=== PATIENT | male | born 1980 | race Caucasian/White ===

== ENCOUNTER 2020-05-16 20:17 | Inpatient (IN) | payer BC ==
--- NOTE | 2020-05-16 20:38 | ED ---
Psych HPI - General Chief Complaint: Psychiatric Symptoms Stated Complaint: Mental Health Time Seen by Provider: 05/16/20 20:30 Source: patient Mode of arrival: ambulatory - History of Present Illness Initial Comments: 39-year-old male patient presents to the emergency department today for evaluation of suicidal ideation. Patient had a very stressful last couple of weeks and came to a head today. Patient reported his gun and when his white count home told her that he was going to kill himself. States he did not feel safe staying home. Asked to be taken to the hospital. Patient does have a history of some depression and anxiety for which she takes Effexor. Has some remote history of suicidal thoughts but never any attempts. Denies any alcohol or drug use. Denies any current physical injuries or concerns. Patient denies any recent rash, fever, chills, cough, shortness of breath, chest pain, abdominal pain, nausea, vomiting, diarrhea, constipation, back pain, numbness, tingling, dizziness, weakness, hematuria, dysuria, urinary urgency, urinary frequency, headache, visual changes, or any other complaints. - Related Data Home Medications Medication Instructions Recorded Confirmed Venlafaxine HCl [Effexor] 50 mg PO DAILY 02/07/16 05/16/20 Allergies Allergy/AdvReac Type Severity Reaction Status Date / Time No Known Allergies Allergy Verified 05/16/20 22:50 Review of Systems ROS Statement: Those systems with pertinent positive or pertinent negative responses have been documented in the HPI. ROS Other: All systems not noted in ROS Statement are negative. Past Medical History Past Medical History: No Reported History History of Any Multi-Drug Resistant Organisms: None Reported Additional Past Surgical History / Comment(s): vasectomy Past Psychological History: Depression Smoking Status: Never smoker Past Alcohol Use History: None Reported Past Drug Use History: None Reported General Exam Limitations: no limitations General appearance: alert, in no apparent distress, other ENT exam: Present: normal exam, normal oropharynx, mucous membranes moist Respiratory exam: Present: normal lung sounds bilaterally. Absent: respiratory distress, wheezes, rales, rhonchi, stridor Cardiovascular Exam: Present: regular rate, normal rhythm, normal heart sounds. Absent: systolic murmur, diastolic murmur, rubs, gallop, clicks Neurological exam: Present: alert, oriented X3, CN II-XII intact Psychiatric exam: Present: normal affect, normal mood Skin exam: Present: warm, dry, intact, normal color. Absent: rash Course Vital Signs 05/16/20 05/17/20 20:18 00:46 Temperature 98.5 F 98.1 F Pulse Rate 71 87 Respiratory 18 18 Rate Blood Pressure 161/106 137/97 O2 Sat by Pulse 99 98 Oximetry Medical Decision Making - Medical Decision Making 39-year-old male patient presents to the emergency department today for evaluation of suicidal ideation. Patient with plan to shoot himself, had a shotgun loaded at home. His at a stressful couple of weeks. He was cleared medically. He was seen and evaluated by emergency psychiatric services. He will be admitted to the inpatient mental health unit. Case discussed with my attending Dr. James. - Lab Data Lab Results 05/16/20 05/16/20 Range/Units 20:47 21:21 Urine Opiates Screen Not Detected (NotDetected) Ur Oxycodone Screen Not Detected (NotDetected) Urine Methadone Screen Not Detected (NotDetected) Ur Propoxyphene Screen Not Detected (NotDetected) Ur Barbiturates Screen Not Detected (NotDetected) U Tricyclic Antidepress Not Detected (NotDetected) Ur Phencyclidine Scrn Not Detected (NotDetected) Ur Amphetamines Screen Not Detected (NotDetected) U Methamphetamines Scrn Not Detected (NotDetected) U Benzodiazepines Scrn Not Detected (NotDetected) Urine Cocaine Screen Not Detected (NotDetected) U Marijuana (THC) Screen Not Detected (NotDetected) Coronavirus (PCR) Not Detected (Not Detectd) Disposition Clinical Impression: Depression, Suicidal ideation Disposition: TRANSFER TO PSYCH HOSP/UNIT Condition: Serious Referrals: Georges Casper DO [Primary Care Provider] - 1-2 days - Out of Hospital Transfer - Req. Specs Out of Hospital Transfer - Requested Specifics: Psychiatric Non-ICU ([facility])
[2020-05-16] MEDS ORDERED: NICOTINE 7MG/24HR PATCH TRANSDERM ONE (21:15)
[2020-05-16 21:45] LABS: Amphetamine Screen,Urine Not Detected (NotDetected); Barbiturate Screen,Urine Not Detected (NotDetected); Benzodiazepines Screen,Urine Not Detected (NotDetected); Cocaine Screen,Urine Not Detected (NotDetected); Methadone Screen, Urine Not Detected (NotDetected); Opiate Screen,Urine Not Detected (NotDetected); Oxycodone Screen, Urine Not Detected (NotDetected); Phencyclidine Screen,Urine Not Detected (NotDetected); Tricyclic Antidepressant,Urine Not Detected (NotDetected); Urn Cannabinoid Scrn Not Detected (NotDetected)
[2020-05-17 00:41] LABS: Appearance,Urine Clear (Clear); Bilirubin,Urine Negative (Negative); Blood,Urine Trace (Negative); Color,Urine Yellow; Glucose,Urine (UA) Negative (Negative); Ketones,Urine 2+ (Negative); Leukocyte Esterase,Urine Negative (Negative); Mucus,Urine Occasional /hpf; Nitrite,Urine Negative (Negative); PH, Urine 6.5 (5.0-8.0); Protein,Urine Trace (Negative); RBC,Urine 11 /hpf (0-5); Specific Gravity,Urine 1.029 (1.001-1.035); Squamous Epithelial Cell,Urine <1 /hpf (0-4); Urobilinogen,Urine <2.0 mg/dL (<2.0); WBC,Urine 1 /hpf (0-5)
[2020-05-17 00:57] LABS: HCT 45.6 % (39.0-53.0); HGB 15.6 gm/dL (13.0-17.5); MCH 31.7 pg (25.0-35.0); MCHC 34.3 g/dL (31.0-37.0); MCV 92.4 fL (80.0-100.0); Platelet Count 250 k/uL (150-450); RBC 4.94 m/uL (4.30-5.90); RDW 11.3 % (11.5-15.5); WBC 8.8 k/uL (3.8-10.6)
[2020-05-17 01:08] LABS: ALT 14 U/L (4-49); AST 19 U/L (17-59); African American GFR (CKD) >90 (>60 ml/min/1.73 sqM); Albumin 4.8 g/dL (3.5-5.0); Alkaline Phosphatase 53 U/L (38-126); Anion Gap 14 mmol/L; Blood Urea Nitrogen 14 mg/dL (9-20); Calcium 10.1 mg/dL (8.4-10.2); Carbon Dioxide 23 mmol/L (22-30); Chloride 100 mmol/L (98-107); Glucose 102 mg/dL (74-99); Non-African American GFR(CKD) >90 (>60 ml/min/1.73 sqM); Potassium 3.8 mmol/L (3.5-5.1); Sodium 137 mmol/L (137-145); Total Bilirubin 0.8 mg/dL (0.2-1.3); Total Protein 7.8 g/dL (6.3-8.2)
[2020-05-17] MEDS ORDERED: LORazepam 1 MG TAB PO PRN (01:30)
[2020-05-17] MEDS ORDERED: ACETAMINOPHEN TAB 325 MG TAB PO PRN (01:30)
[2020-05-17] MEDS ORDERED: MAGNESIUM HYDROXIDE 2,400 MG/10 ML CUP PO PRN (01:30)
[2020-05-17] MEDS ORDERED: MAG HYDROX/AL HYDROX/SIMETH 30 ML CUP PO PRN (01:30)
[2020-05-17] MEDS ORDERED: LORazepam 2 MG/ML INJ IM PRN (01:37)
[2020-05-17] MEDS ORDERED: haloperidoL 5 MG TAB PO PRN (01:38)
[2020-05-17] MEDS ORDERED: HALOPERIDOL LACTATE 5 MG/ML 1 ML VIAL IM PRN (01:38)
[2020-05-17] MEDS: NICOTINE 7MG/24HR PATCH TRANSDERM SCH (08:15)
[2020-05-17] MEDS ORDERED: VENLAFAXINE HCL 50 MG TAB PO SCH (09:00)
--- NOTE | 2020-05-17 10:21 | P.HP ---
Psychiatric H&P - . H&P Date: 05/17/20 History & Physical: Allergies Allergy/AdvReac Type Severity Reaction Status Date / Time No Known Allergies Allergy Verified 05/17/20 03:19 Vital Signs Temp 98.4 F 05/17/20 03:10 Pulse 63 05/17/20 03:10 Resp 18 05/17/20 03:10 BP 134/77 05/17/20 03:10 Pulse Ox 99 05/17/20 03:10 Intake & Output 05/16/20 05/17/20 05/17/20 18:59 06:59 18:59 Weight 73.4 kg Laboratory Last Values WBC 8.8 k/uL (3.8-10.6) 05/17/20 00:39 RBC 4.94 m/uL (4.30-5.90) 05/17/20 00:39 Hgb 15.6 gm/dL (13.0-17.5) 05/17/20 00:39 Hct 45.6 % (39.0-53.0) 05/17/20 00:39 MCV 92.4 fL (80.0-100.0) 05/17/20 00:39 MCH 31.7 pg (25.0-35.0) 05/17/20 00:39 MCHC 34.3 g/dL (31.0-37.0) 05/17/20 00:39 RDW 11.3 % (11.5-15.5) L 05/17/20 00:39 Plt Count 250 k/uL (150-450) 05/17/20 00:39 MPV 8.0 05/17/20 00:39 Sodium 137 mmol/L (137-145) 05/17/20 00:39 Potassium 3.8 mmol/L (3.5-5.1) 05/17/20 00:39 Chloride 100 mmol/L (98-107) 05/17/20 00:39 Carbon Dioxide 23 mmol/L (22-30) 05/17/20 00:39 Anion Gap 14 mmol/L 05/17/20 00:39 BUN 14 mg/dL (9-20) 05/17/20 00:39 Creatinine 0.64 mg/dL (0.66-1.25) L 05/17/20 00:39 Est GFR (CKD-EPI)AfAm >90 (>60 ml/min/1.73 sqM) 05/17/20 00:39 Est GFR (CKD-EPI)NonAf >90 (>60 ml/min/1.73 sqM) 05/17/20 00:39 Glucose 102 mg/dL (74-99) H 05/17/20 00:39 Calcium 10.1 mg/dL (8.4-10.2) 05/17/20 00:39 Total Bilirubin 0.8 mg/dL (0.2-1.3) 05/17/20 00:39 AST 19 U/L (17-59) 05/17/20 00:39 ALT 14 U/L (4-49) 05/17/20 00:39 Alkaline Phosphatase 53 U/L (38-126) 05/17/20 00:39 Total Protein 7.8 g/dL (6.3-8.2) 05/17/20 00:39 Albumin 4.8 g/dL (3.5-5.0) 05/17/20 00:39 TSH 2.730 mIU/L (0.465-4.680) 05/17/20 00:39 Urine Color Yellow 05/16/20 21:30 Urine Appearance Clear (Clear) 05/16/20 21:30 Urine pH 6.5 (5.0-8.0) 05/16/20 21:30 Ur Specific [place] 1.029 (1.001-1.035) 05/16/20 21:30 Urine Protein Trace (Negative) H 05/16/20 21:30 Urine Glucose (UA) Negative (Negative) 05/16/20 21:30 Urine Ketones 2+ (Negative) H 05/16/20 21:30 Urine Blood Trace (Negative) H 05/16/20 21:30 Urine Nitrite Negative (Negative) 05/16/20 21:30 Urine Bilirubin Negative (Negative) 05/16/20 21:30 Urine Urobilinogen <2.0 mg/dL (<2.0) 05/16/20 21:30 Ur Leukocyte Esterase Negative (Negative) 05/16/20 21:30 Urine RBC 11 /hpf (0-5) H 05/16/20 21:30 Urine WBC 1 /hpf (0-5) 05/16/20 21:30 Ur Squamous Epith Cells <1 /hpf (0-4) 05/16/20 21:30 Urine Mucus Occasional /hpf (None) H 05/16/20 21:30 Urine Opiates Screen Not Detected (NotDetected) 05/16/20 21:21 Ur Oxycodone Screen Not Detected (NotDetected) 05/16/20 21:21 Urine Methadone Screen Not Detected (NotDetected) 05/16/20 21:21 Ur Propoxyphene Screen Not Detected (NotDetected) 05/16/20 21:21 Ur Barbiturates Screen Not Detected (NotDetected) 05/16/20 21:21 U Tricyclic Antidepress Not Detected (NotDetected) 05/16/20 21:21 Ur Phencyclidine Scrn Not Detected (NotDetected) 05/16/20 21:21 Ur Amphetamines Screen Not Detected (NotDetected) 05/16/20 21:21 U Methamphetamines Scrn Not Detected (NotDetected) 05/16/20 21:21 U Benzodiazepines Scrn Not Detected (NotDetected) 05/16/20 21:21 Urine Cocaine Screen Not Detected (NotDetected) 05/16/20 21:21 U Marijuana (THC) Screen Not Detected (NotDetected) 05/16/20 21:21 Coronavirus (PCR) Not Detected (Not Detectd) 05/16/20 20:47 05/17/20 10:15 IDENTIFYING DATA: Patient is a 39-year-old male who currently lives with 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 HPI: Patient presented to the hospital yesterday with complaints of suicidal thoughts and being stressed for the past 2 weeks. According to ER report patient claimed that he was not safe at home and had a plan to shoot himself with his gun. Patient's UDS was negative. Patient was admitted voluntarily to the psychiatric unit for treatment and evaluation. Patient was seen today and agreeable to speak to service writer advisor and appeared to be cooperative for the most part. He had a depressed affect and irritable at times. He states that he's been taking Effexor for the past "20 years" and states that it has not been helping him any longer. He states that he has been feeling more "stressed" recently and states that he is feeling more anxious as well. He states that he "cares too much what other people think". He states that he is been feeling depressed for the past 3-4 weeks. 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 He states that things at work have been busier and is feeling more stressed about this. She states that "I just wanted it all to be done". He claims that currently sleeping approximately 1-2 hours a night and has a motivation when he gets home from work . He states that he has a decrease in his appetite. He states that he has 3 guns at home and claims that his got rid of them and gave them to his father after this incident.. Patient denies any suicidal or homicidal ideations intent or plan. At this time patient denies any auditory or visual hallucinations. Patient denies any flight of ideas racing thoughts and increased in goal directed behavior. Patient admits to using no recreational drugs PAST PSYCHIATRIC HISTORY: Patient states that he has a history of depression and anxiety. Patient claims that he has been on Effexor 50 mg daily for the past "20 years". Patient denies any previous psychiatric hospitalizations. Patient denies any psychiatric outpatient follow-up. Patient denies any history of suicide attempts in the past. PMH:denies ALLERGIES: as per EMR CHEMICAL DEPENDENCY HISTORY: as per HPI FAMILY PSYCHIATRIC/SUBSTANCE USE HISTORY: He states that his sister had depression SOCIAL HISTORY: Patient was born and raised in [place], [place] and states that he completed high school and did some college. He denies any legal history or history. 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 MENTAL STATUS EXAM: General Appearance: Patient appears to be stated age is alert, directable, and attempts to cooperate. Irritable at times. Patient appears to have fair hygiene and grooming. Behavior: Patient is seated without any agitated behavior. Attempts to cooperate. Speech: Patient's speech is fluent and nonpressured. Mood/Affect: Patient reports their mood is depressed and anxious, affect is congruent Suicidality/Homicidality: Patient denies having any homicidal ideation intent or plan. Denies any suicidal ideations intent or plan Perceptions: Patient denies any visual hallucinations and denies any auditory hallucinations Though content/process: There is no evidence of any delusional thought content and thought process is linear and goal-directed. Focused on his stressors. Memory and concentration: AOX3, grossly intact for the purposes of this session. Can spell "WORLD" backwards Judgment and insight: poor STRENGTHS/WEAKNESSES: strength is that patient is resilient. Weakness is that patient has multiple social stressors. INTELLECT: average IMPRESSIONS: Major depressive disorder, recurrent, severe without psychotic features Anxiety disorder unspecified nicotine dependence PLAN: -Patient is admitted under voluntary status to MHU for stabilization of psychiatric symptoms and safety. Patient has signed adult voluntary form and m edication consent and is placed in patient's chart. -Medications : Will start patient on Zoloft 50 mg daily for mood/anxiety. Discontinued Effexor as per patient request. Started Remeron 15 mg daily at bedtime for sleep/appetite/mood. -Ativan and Haldol PRN for agitation/aggression -Patient was informed of the risks, benefits and side effects of the medication and patient verbally consented to taking the medications. Patient signed med consent form and was placed in chart. -Internal Medicine consult to perform medical evaluation and physical. -NRT - not needed as patient does not smoke -SW on board for discharge planning. Encourage patient to participate in groups to work on coping skills. We will need to confirm with patient's that the guns and weapons have been removed from the house prior to discharge. 05/17/20 10:21
[2020-05-17 11:27] VITALS: BMI 22.6
--- NOTE | 2020-05-17 13:56 | P.CONS ---
History of Present Illness - Reason for Consult Medical clearance - History of Present Illness 39-year-old pleasant gentleman was admitted seconded referral for depression and possible suicidal ideations. Patient denied any fever chills nausea vomiting chest pain dysuria. Review of Systems REVIEW OF SYSTEMS: CONSTITUTIONAL: No fever, no malaise, no fatigue. HEENT: No recent visual problems or hearing problems. Denied any sore throat. CARDIOVASCULAR: No chest pain, orthopnea, PND, no palpitations, no syncope. PULMONARY: No shortness of breath, no cough, no hemoptysis. GASTROINTESTINAL: No diarrhea, no nausea, no vomiting, no abdominal pain. NEUROLOGICAL: No headaches, no weakness, no numbness. HEMATOLOGICAL: Denies any bleeding or petechiae. GENITOURINARY: Denies any burning micturition, frequency, or urgency. MUSCULOSKELETAL/RHEUMATOLOGICAL: Denies any joint pain, swelling, or any muscle pain. ENDOCRINE: Denies any polyuria or polydipsia. The rest of the 14-point review of systems is negative. Past Medical History Past Medical History: No Reported History History of Any Multi-Drug Resistant Organisms: None Reported Additional Past Surgical History / Comment(s): vasectomy Smoking Status: Never smoker Medications and Allergies Home Medications Medication Instructions Recorded Confirmed Type Venlafaxine HCl [Effexor] 50 mg PO DAILY 02/07/16 05/16/20 History Allergies Allergy/AdvReac Type Severity Reaction Status Date / Time No Known Allergies Allergy Verified 05/17/20 03:19 Physical Exam Vitals: Vital Signs Temp Pulse Pulse Resp BP BP Pulse Ox 05/17/20 13:38 97.2 F L 05/17/20 03:10 98.4 F 63 18 134/77 99 05/17/20 00:46 98.1 F 87 18 137/97 98 05/16/20 20:18 98.5 F 71 18 161/106 99 Intake and Output 05/16/20 05/17/20 05/17/20 22:59 06:59 14:59 Other: Weight 72.575 kg 73.4 kg 73.4 kg PHYSICAL EXAMINATION: GENERAL: The patient is alert and oriented x3, not in any acute distress. Well developed, well nourished. HEENT: Pupils are round and equally reacting to light. EOMI. No scleral icterus. No conjunctival pallor. Normocephalic, atraumatic. No pharyngeal erythema. No thyromegaly. CARDIOVASCULAR: S1 and S2 present. No murmurs, rubs, or gallops. PULMONARY: Chest is clear to auscultation, no wheezing or crackles. ABDOMEN: Soft, nontender, nondistended, normoactive bowel sounds. No palpable organomegaly. MUSCULOSKELETAL: No joint swelling or deformity. EXTREMITIES: No cyanosis, clubbing, or pedal edema. NEUROLOGICAL: Gross neurological examination did not reveal any focal deficits. SKIN: No rashes. Results CBC & Chem 7: 05/17/20 00:39 05/17/20 00:39 Labs: Abnormal Lab Results - Last 24 Hours (Table) 05/16/20 05/17/20 05/17/20 Range/Units 21:30 00:39 00:39 RDW 11.3 L (11.5-15.5) % Creatinine 0.64 L (0.66-1.25) mg/dL Glucose 102 H (74-99) mg/dL Urine Protein Trace H (Negative) Urine Ketones 2+ H (Negative) Urine Blood Trace H (Negative) Urine RBC 11 H (0-5) /hpf Urine Mucus Occasional H (None) /hpf Assessment and Plan Plan: -Major depression: Management as per primary service -Anxiety disorder - nicotine dependence counseling was provided patient uses chewing tobacco. Patient is medically stable doesn't have any chronic medical problems no further recommendations from medicine
[2020-05-17] MEDS: MIRTAZAPINE 15 MG TAB PO SCH (21:23)
[2020-05-18] MEDS: SERTRALINE 50 MG TAB PO SCH (08:30)
[2020-05-18] MEDS: NICOTINE 7MG/24HR PATCH TRANSDERM SCH (08:30)
--- NOTE | 2020-05-18 09:32 | P.PN ---
Progress Note - Text Progress Note Date: 05/18/20 Interval History: Patient was seen lying in his bed this morning and was directable and agreeable to speak with verse writer in the office. Patient appears to be mildly more cooperative the verse writer today. He continues to have a soft tone of voice and was fairly constricted in his affect. He states that his mood has been gradually improving however has not noticed much change since this morning taking his first dose of Zoloft. He states that his anxiety is continuing throughout the day and took an Ativan yesterday. He states that he was able to sleep better last night however does not know how long. He states that his appetite has been improving with the Remeron. Gasoline Pump Mechanic discussed a plan to monitor her over the weekend and increase the dose of Zoloft if needed and patient was agreeable to this. He stated that he has gone to some groups and talk with his yesterday over the phone.. At this time patient denies any suicidal or homical ideations, intent or plan. Patient denies any auditory, visual hallucinations and denies any paranoia or delusions. Patient denies any side effects from the medications and has been compliant with meds. Mental Status Exam: General Appearance: Patient appears to be stated age is alert, directable, and attempts to cooperate. Improvement in irritability. Patient appears to have fair hygiene and grooming. Behavior: Patient is seated without any agitated behavior. Attempts to cooperate. Speech: Patient's speech is fluent and nonpressured. Soft tone of voice Mood/Affect: Patient reports their mood is depressed and anxious, improving mildly, affect is congruent and constricted Suicidality/Homicidality: Patient denies having any homicidal ideation intent or plan. Denies any suicidal ideations intent or plan Perceptions: Patient denies any visual hallucinations and denies any auditory hallucinations Though content/process: There is no evidence of any delusional thought content and thought process is linear and goal-directed. Focused on his stressors. Memory and concentration: AOX3, grossly intact for the purposes of this session Judgment and insight: poor, improving mildly Assessment Major depressive disorder, recurrent, severe without psychotic features Anxiety disorder unspecified nicotine dependence Plan: -Patient continues to meet criteria for inpatient psychiatric admission for symptom stabilization and safety. Patient has signed [adult voluntary form and] medication consent and was placed in patient's chart. -Medications: Continue Zoloft 50 mg daily for mood/anxiety, consider increasing dose to 100mg on thursday. Continue with Remeron 15 mg daily at bedtime for sleep/appetite/mood. -When necessary Ativan and Haldol for agitation/aggression. -NRT -not needed as patient does not smoke -SW on board for discharge planning. Encouraged the patient to participate in milieu. We will need to confirm with patient's that the guns and weapons have been removed from the house prior to discharge. If patient does well over the weekend and likely discharge thursday-thursday
[2020-05-18] MEDS: MIRTAZAPINE 15 MG TAB PO SCH (22:11)
[2020-05-19] MEDS: NICOTINE 7MG/24HR PATCH TRANSDERM SCH (08:19)
[2020-05-19] MEDS: SERTRALINE 50 MG TAB PO SCH (08:19)
--- NOTE | 2020-05-19 10:23 | P.PN ---
Progress Note - Text Progress Note Date: 05/19/20 Interval history: Patient was seen lying in bed reading a book and was directable and agreeable to speak with clinical writer. Patient reports that he is feeling better. She is not reporting any suicidal or homicidal ideation, intention, and/or plan. He is denying any auditory or visual hallucinations. He denies any paranoia or delusions. He states that he is enjoying himself by engaging in reading. He has been adherent with his medications and is not reporting any significant side effects at this time. He reports his anxiety appears to be improving mildly. He reports he is not as focused on his stressors today. Mental status exam: General Appearance: Patient appears to be stated age is alert, directable, and cooperative. Hygiene and grooming appear good. Behavior: No agitated behavior. Patient is calm and directable. Eye contact is appropriate. Psychomotor activity is normal. Speech: Patient's speech is fluent and nonpressured. Mood/Affect: Mood is improving mildly, affect is congruent and constricted. Suicidality/Homicidality: Patient denies having any suicidal or homicidal ideation intent or plan. Perceptions: Patient denies any auditory or visual hallucinations. Though content/process: There is no evidence of any delusional thought content and thought process is linear and goal-directed. Memory and concentration: AOX3, grossly intact for the purposes of this session Judgment and insight: improving mildly Assessment/Plan: Continue with current diagnosis. Patient continues to meet criteria for inpatient psychiatric admission for symptom stabilization and safety. Patient will be maintained on current psychotropic medication regimen. Zoloft will be increased to 100 mg tomorrow. Monitor for medication compliance and for any psychotropic medication side effects. Will continue to monitor ongoing response to treatment. Encouraged participation in milieu.
[2020-05-19] MEDS: MIRTAZAPINE 15 MG TAB PO SCH (21:29)
[2020-05-20] MEDS: SERTRALINE 50 MG TAB PO SCH (08:26)
[2020-05-20] MEDS: NICOTINE 7MG/24HR PATCH TRANSDERM SCH (08:26)
--- NOTE | 2020-05-20 10:45 | P.PN ---
Progress Note - Text Progress Note Date: 05/20/20 Interval history: Patient was seen lying in bed reading a book and was directable and agreeable to speak with technical document writer. Patient states that he is feeling good. He is not reporting any suicidal or homicidal ideation, intention, and/or plan. He is denying any auditory or visualizations. He denies any paranoia or delusions. He has been engaging in milieu and individual activities with high participation. He has been adherent with his medications and is not reporting any significant side effects at this time. He understands that he was expressing a lot of significant stressors prior to this admission and that he had a "mental breakdown." He stresses that he is future oriented at this time and is excited to be discharged so that he can focus on his problems. Mental status exam: General Appearance: Patient appears to be stated age is alert, directable, and cooperative. Hygiene and grooming appear good. Behavior: No agitated behavior. Patient is calm and directable. Eye contact is appropriate. Psychomotor activity is normal. Speech: Patient's speech is fluent and nonpressured. Mood/Affect: Mood is improving mildly, affect is congruent and constricted. Suicidality/Homicidality: Patient denies having any suicidal or homicidal ideation intent or plan. Perceptions: Patient denies any auditory or visual hallucinations. Though content/process: There is no evidence of any delusional thought content and thought process is linear and goal-directed. Memory and concentration: AOX3, grossly intact for the purposes of this session Judgment and insight: improving mildly Assessment/Plan: Continue with current diagnosis. Patient continues to meet criteria for inpatient psychiatric admission for symptom stabilization and safety. Patient will be maintained on current psychotropic medication regimen with the exception of increasing his Zoloft to 100 mg daily. Monitor for medication compliance and for any psychotropic medication side effects. Will continue to monitor ongoing response to treatment. Encouraged participation in milieu.
[2020-05-20] MEDS: MIRTAZAPINE 15 MG TAB PO SCH (20:30)
[2020-05-21 06:32] VITALS: BP 164/90; PULSE 88; RESP 18; TEMP 98.2
[2020-05-21] MEDS: NICOTINE 7MG/24HR PATCH TRANSDERM SCH (07:55)
[2020-05-21] MEDS ORDERED: SERTRALINE 100 MG TAB PO SCH (09:00)
--- NOTE | 2020-05-21 09:32 | P.DS ---
Providers Date of admission: 05/17/20 01:25 Expected date of discharge: 05/21/20 Attending physician: Lexa Eli MD Consults: 05/17/20 01:30 Consult Physician Routine Consulting Provider: Ari Rizzo Consult Reason/Comments: H&P for mental health admission Do you want consulting provider notified?: Yes, Notify in am Primary care physician: Georges Casper - Discharge Diagnosis(es) (1) Major depressive disorder, recurrent severe without psychotic features Current Visit: Yes Status: Acute Priority: High (2) Anxiety disorder, unspecified Current Visit: Yes Status: Acute Priority: Medium (3) Nicotine dependence Current Visit: Yes Status: Acute Priority: Low Hospital Course: Admission HPI: Admission note was completed by investment underwriter "Patient is a 39-year-old male who currently lives with his and 3 kids in the house and 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 Patient presented to the hospital yesterday with complaints of suicidal thoughts and being stressed for the past 2 weeks. According to ER report patient claimed that he was not safe at home and had a plan to shoot himself with his gun. Patient's UDS was negative. Patient was admitted voluntarily to the psychiatric unit for treatment and evaluation. Patient was seen today and agreeable to speak to investment underwriter and appeared to be cooperative for the most part. He had a depressed affect and irritable at times. He states that he's been taking Effexor for the past "20 years" and states that it has not been helping him any longer. He states that he has been feeling more "stressed" recently and states that he is feeling more anxious as well. He states that he "cares too much what other people think". He states that he is been feeling depressed for the past 3-4 weeks. 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 He states that things at work have been busier and is feeling more stressed about this. She states that "I just wanted it all to be done". He claims that currently sleeping approximately 1-2 hours a night and has a motivation when he gets home from work. He states that he has a decrease in his appetite. He states that he has 3 guns at home and claims that his got rid of them and gave them to his father after this incident. Patient denies any suicidal or homicidal ideations intent or plan. At this time patient denies any auditory or visual hallucinations. Patient denies any flight of ideas racing thoughts and increased in goal directed behavior. Patient admits to using no recreational drugs " Hospital course: Upon admission to the unit patient was initially depressed and anxious. Patient was however directable and agreeable to commence treatment and signed adult voluntary form. Patient got along well with other patients on the unit and followed unit protocol. Patient was compliant with the medications and denied any side effects throughout hospital course. Patient was started on Zoloft and titrate up the dose of 100 mg daily for mood/anxiety. Patient was also started on Remeron 50 mg daily at bedtime for sleep/appetite/mood.. Patient spoke of his stressors and engaged in therapy both group and individual. Patient was also seen by medical team for history and physical exam. Throughout the course of the hospitalization patient gradually improved with regards to mood, anxiety, sleep and became more future oriented with improved insight and judgment. On the day of discharge patient denied any suicidal or homicidal ideations intent or plan denied any auditory or visual hallucinations. Patient endorsed wanting to live for his health and kids. The patient denied any access to guns or weapons and stated that his had removed the guns and gave them to his father for safekeeping. Patient denied any paranoia and did not endorse any delusions. Patient does not have a significant history of substance abuse however was counseled on abstaining from all substances including alcohol and marijuana. Patient was also counseled on the medications and need for regular compliance and was encouraged to follow-up with their outpatient appointment for mental health and also for primary care. Prior to discharge a family meeting will be arranged by social service technician to answer any questions and ensure safety upon discharge and to ensure that guns and weapons were removed from the house.. Mental status exam: General Appearance: Patient appears to be well built, stated age is alert, pleasant, and cooperative. Patient is in no acute distress and has improved hygiene and grooming Behavior: Patient is calmly seated without any agitated behavior. Speech: Patient's speech is fluent and nonpressured. Mood/Affect: Patient reports their mood is "better", affect is congruent and euthymic. Suicidality/Homicidality: Patient denies having any suicidal or homicidal ideation intent or plan. Perceptions: Patient denies any auditory or visual hallucinations. Though content/process: There is no evidence of any delusional thought content and thought process is linear and goal-directed. more future oriented Memory and concentration: AOX3, grossly intact for the purposes of this session. Can spell "WORLD" backwards correctly. Judgment and insight: improved with guarded prognosis Impression: Major depressive disorder, recurrent, severe without psychotic features Anxiety disorder unspecified Nicotine dependence Plan: -Continue with discharge today as patient has improved and stabilized psychiatrically and is not currently an imminent threat to himself and/or others. -Continue medications: Continue Zoloft 100 mg daily for mood/anxiety, Remeron 15 mg daily at bedtime for sleep/appetite/mood -Patient was counseled on the need for medication compliance and appropriate follow-up at mental health and also primary care for medical issues. Patient verbalized understanding and agreed. -Social work to arrange for and conduct family meeting to ensure safety upon discharge and answer any questions/concerns. Social work also to arrange for patients follow up appointments with sarabj[facility] garcia for psychiatric care along with follow up with primary care provider. -Patient counseled on abstaining from recreational drugs and marijuana and alcohol. Was informed/educated on the adverse effects on their physical and mental health. Patient verbally agreed and understood. -Patient was instructed to return to the hospital or seek immediate medical care if their psychiatric or medical symptoms do worsen or reoccur. Allergies Allergy/AdvReac Type Severity Reaction Status Date / Time No Known Allergies Allergy Verified 05/17/20 03:19 Laboratory Results WBC 8.8 k/uL (3.8-10.6) 05/17/20 00:39 RBC 4.94 m/uL (4.30-5.90) 05/17/20 00:39 Hgb 15.6 gm/dL (13.0-17.5) 05/17/20 00:39 Hct 45.6 % (39.0-53.0) 05/17/20 00:39 MCV 92.4 fL (80.0-100.0) 05/17/20 00:39 MCH 31.7 pg (25.0-35.0) 05/17/20 00:39 MCHC 34.3 g/dL (31.0-37.0) 05/17/20 00:39 RDW 11.3 % (11.5-15.5) L 05/17/20 00:39 Plt Count 250 k/uL (150-450) 05/17/20 00:39 MPV 8.0 05/17/20 00:39 Sodium 137 mmol/L (137-145) 05/17/20 00:39 Potassium 3.8 mmol/L (3.5-5.1) 05/17/20 00:39 Chloride 100 mmol/L (98-107) 05/17/20 00:39 Carbon Dioxide 23 mmol/L (22-30) 05/17/20 00:39 Anion Gap 14 mmol/L 05/17/20 00:39 BUN 14 mg/dL (9-20) 05/17/20 00:39 Creatinine 0.64 mg/dL (0.66-1.25) L 05/17/20 00:39 Est GFR (CKD-EPI)AfAm >90 (>60 ml/min/1.73 sqM) 05/17/20 00:39 Est GFR (CKD-EPI)NonAf >90 (>60 ml/min/1.73 sqM) 05/17/20 00:39 Glucose 102 mg/dL (74-99) H 05/17/20 00:39 Calcium 10.1 mg/dL (8.4-10.2) 05/17/20 00:39 Total Bilirubin 0.8 mg/dL (0.2-1.3) 05/17/20 00:39 AST 19 U/L (17-59) 05/17/20 00:39 ALT 14 U/L (4-49) 05/17/20 00:39 Alkaline Phosphatase 53 U/L (38-126) 05/17/20 00:39 Total Protein 7.8 g/dL (6.3-8.2) 05/17/20 00:39 Albumin 4.8 g/dL (3.5-5.0) 05/17/20 00:39 TSH 2.730 mIU/L (0.465-4.680) 0218 00:39 Urine Color Yellow 05/16/20 21:30 Urine Appearance Clear (Clear) 05/16/20 21:30 Urine pH 6.5 (5.0-8.0) 05/16/20 21:30 Ur Specific [place] 1.029 (1.001-1.035) 05/16/20 21:30 Urine Protein Trace (Negative) H 05/16/20 21:30 Urine Glucose (UA) Negative (Negative) 05/16/20 21:30 Urine Ketones 2+ (Negative) H 05/16/20 21:30 Urine Blood Trace (Negative) H 05/16/20 21:30 Urine Nitrite Negative (Negative) 05/16/20 21:30 Urine Bilirubin Negative (Negative) 05/16/20 21:30 Urine Urobilinogen <2.0 mg/dL (<2.0) 05/16/20 21:30 Ur Leukocyte Esterase Negative (Negative) 05/16/20 21:30 Urine RBC 11 /hpf (0-5) H 05/16/20 21:30 Urine WBC 1 /hpf (0-5) 05/16/20 21:30 Ur Squamous Epith Cells <1 /hpf (0-4) 05/16/20 21:30 Urine Mucus Occasional /hpf (None) H 05/16/20 21:30 Urine Opiates Screen Not Detected (NotDetected) 05/16/20 21:21 Ur Oxycodone Screen Not Detected (NotDetected) 05/16/20 21:21 Urine Methadone Screen Not Detected (NotDetected) 05/16/20 21:21 Ur Propoxyphene Screen Not Detected (NotDetected) 05/16/20 21:21 Ur Barbiturates Screen Not Detected (NotDetected) 05/16/20 21:21 U Tricyclic Antidepress Not Detected (NotDetected) 05/16/20 21:21 Ur Phencyclidine Scrn Not Detected (NotDetected) 05/16/20 21:21 Ur Amphetamines Screen Not Detected (NotDetected) 05/16/20 21:21 U Methamphetamines Scrn Not Detected (NotDetected) 05/16/20 21:21 U Benzodiazepines Scrn Not Detected (NotDetected) 05/16/20 21:21 Urine Cocaine Screen Not Detected (NotDetected) 05/16/20 21:21 U Marijuana (THC) Screen Not Detected (NotDetected) 05/16/20 21:21 Coronavirus (PCR) Not Detected (Not Detectd) 05/16/20 20:47 Vital Signs Temp 98.2 F 05/21/20 06:31 Pulse 88 05/21/20 06:31 Resp 18 05/21/20 06:31 BP 164/90 05/21/20 06:31 Pulse Ox 98 05/21/20 06:31 Intake & Output 05/20/20 05/21/20 05/21/20 18:59 06:59 18:59 Weight 78.6 kg Patient Condition at Discharge: Stable Plan - Discharge Summary Discharge Rx Participant: No New Discharge Prescriptions: New Nicotine 7Mg/24Hr Patch [Habitrol] 1 patch TRANSDERM DAILY 14 Days patch Mirtazapine [Remeron] 15 mg PO HS 30 Days tab Acetaminophen Tab [Tylenol] 650 mg PO Q4HR PRN tab PRN Reason: Pain/Discomfort Sertraline [Zoloft] 100 mg PO DAILY 30 Days tab Discontinued Venlafaxine HCl [Effexor] 50 mg PO DAILY Discharge Medication List Acetaminophen Tab [Tylenol] 650 mg PO Q4HR PRN tab 05/21/20 [Rx] Mirtazapine [Remeron] 15 mg PO HS 30 Days tab 05/21/20 [Rx] Nicotine 7Mg/24Hr Patch [Habitrol] 1 patch TRANSDERM DAILY 14 Days patch 05/21/20 [Rx] Sertraline [Zoloft] 100 mg PO DAILY 30 Days tab 05/21/20 [Rx] Follow up Appointment(s)/Referral(s): [facility] [Outside] - 05/29/20 12:00 pm (Georges Daly DO [Primary Care Provider] - 1-2 days Activity/Diet/Wound Care/Special Instructions: Activity and diet as tolerated. Avoid the use of street drugs and alcohol. Take all medications as prescribed. When you are in need of refills on your medications please contact your medical provider and/or outpatient psychiatrist to have this done. Please go to scheduled outpatient appointment for aftercare treatment. If symptoms return or become worse, call the crisis line at and/or go to the nearest emergency room for evaluation. Discharge Disposition: HOME SELF-CARE
== END 2020-05-21 13:12 | disposition home or self-care (01) | DRG 885 ==
LOC: EC 20:17 → 3MHU 05-17 01:25
PROVIDERS: ADMIT Psychiatry & Neurology Psychiatry; ATTEND Psychiatry & Neurology Psychiatry
DX: F33.2 Major depressive disorder, recurrent severe without psychotic features (principal); R45.851 Suicidal ideations; F41.9 Anxiety disorder, unspecified; Z20.822 Contact with and (suspected) exposure to COVID-19; F17.220 Nicotine dependence, chewing tobacco, uncomplicated; Z71.6 Tobacco abuse counseling; Z79.899 Other long term (current) drug therapy; Z91.5 Personal history of self-harm; Z81.8 Family history of other mental and behavioral disorders
CPT/HCPCS: 36415; 80053; 80306; 81001; 82075; 84443; 85027; 87635; 99285